=== PATIENT | female | born 1955 | race Caucasian/White ===

== ENCOUNTER 2017-02-26 07:16 | Day surgery (SDC) | payer OTHER ==
[~2017-02-26] VITALS: Ht 154.9 cm; Wt 113.8 kg
[2017-02-26] MEDS ORDERED: CLARITIN5 MG PO (07:30)
[2017-02-26] MEDS ORDERED: NASACORT10.8 ML NAS (07:31)
[2017-02-26] MEDS ORDERED: ESCITALOPRAM OX20 MG PO (07:37)
[2017-02-26] MEDS ORDERED: ADDERALL 10 MG10 MG PO (07:38)
--- NOTE | 2017-02-26 08:45 | NUR ---
02/26/17 0845 Angelica Reeves 0848-PATIENT ARRIVED TO PACU ON 6L OXYMASK O2 SAT 99% PATIENT REACTIVE OPENS EYES. ENCOURAGED TO PASS FLATUS. ABDOMEN ROUND AND SOFT. PATIENT FALLS BACK ASLEEP.
--- NOTE | 2017-02-27 12:08 | OR ---
[facility] [address], [place] [address] Signed DATE OF PROCEDURE: 02/26/17 PREOPERATIVE DIAGNOSES Screening. Mother with a history of colon cancer versus lung cancer. Irritable bowel syndrome. POSTOPERATIVE DIAGNOSES Minimal to moderate sigmoid diverticulosis. A 4-mm polyp distal right colon. A 4-mm polyp left colon. A 4-mm polyp rectosigmoid junction. Internal and external hemorrhoids. PROCEDURE: Colonoscopy with hot biopsy. ESTIMATED BLOOD LOSS: None. INDICATIONS Tanvi is a 61-year-old female, who was asked to see me for a colonoscopy. She spoke of a prior colonoscopy while in [place]. She said her mother had either lung cancer or colon cancer. The autopsy could not determine the origin. She did tell me her mother smoked for many years. Tanvi's previous colonoscopy was negative. In the meantime , she has no lower GI complaints and there is no family history, other than what we mentioned above. Tanvi also told me she remembers being awake during her last colonoscopy. I gave her a pamphlet in the office on colonoscopy and we reviewed the nature of the test along with the risks including, but not limited to gas bloating, crampy abdominal pain, bleeding, perforation requiring surgery, and missed diagnosis. We also discussed the need for IV conscious sedation. We had planned to use our standard Versed and Fentanyl. PROCEDURE NOTE Tanvi was taken into our endoscopy suite and placed in the left lateral decubitus position. She was given a total of 8 mg of Versed and 200 mcg of Fentanyl to cover the whole case. Nevertheless, she was frequently awake, following instructions, and often holding her breath. I think in the future, she would be much better served with Propofol provided by an anesthesia provider. In addition, she has a long redundant colon and sigmoid colon is also long redundant narrowed in it and drags on the scope, as the scope goes through. We did a rectal exam and she does have a moderate external hemorrhoids. The colonoscope was then inserted and advanced under direct visualization with camera. It took a while and rotating her into the supine position and back into the left lateral decubitus position. It was finally made it into the cecum itself. Her prep was good. The scope was then slowly withdrawn. The above-mentioned polyps were Electronically Signed By: MILANA RODRIGUEZ MD 02/27/17 1208 PATIENT NAME: TANVI PRESLEY OPERATIVE REPORT DATE OF : 59 PHYSICIAN: MILANA RODRIGUEZ MD REPORT #: [id number] REPORT IS CONFIDENTIAL AND NOT TO BE RELEASED WITHOUT AUTHORIZATION [facility] [address], [place] [address] Signed removed with the help of hot biopsy forceps. Once in the rectum, the scope have been retroflexed and she had some standard internal hemorrhoid columns. Also she has minimal to moderate sigmoid diverticulosis. After this, the gas had been suctioned out and colonoscope removed. Tanvi tolerated the procedure quite well . RECOMMENDATIONS I will see Tanvi back in my office in 7-14 days to review her results. She needs to consider Propofol for future colonoscopies. MD FLORESITA Padilla/Heladio /[id number] cc: Gerald Nicolas MD Electronically Signed By: MILANA RODRIGUEZ MD 02/27/17 1208 PATIENT NAME: TANVI PRESLEY ANDREW OPERATIVE REPORT DATE OF : 59 PHYSICIAN: MILANA RODRIGUEZ MD REPORT #: [id number] REPORT IS CONFIDENTIAL AND NOT TO BE RELEASED WITHOUT AUTHORIZATION
== END 2017-02-26 09:33 | disposition home or self-care (01) ==
LOC: OPS 07:16 → DS 07:16 → OPS 08:15 → DS 08:15 → OPS 09:33
PROVIDERS: Colon & Rectal Surgery
PROC: 0DBN8ZX Excision of Sigmoid Colon, Via Natural or Artificial Opening Endoscopic, Diagnostic (ICD-10-PCS; 2017-02-26)
PROC: 0DBF8ZX Excision of Right Large Intestine, Via Natural or Artificial Opening Endoscopic, Diagnostic (ICD-10-PCS; 2017-02-26)
PROC: 0DBG8ZX Excision of Left Large Intestine, Via Natural or Artificial Opening Endoscopic, Diagnostic (ICD-10-PCS; principal; 2017-02-26 08:15)
DX: K63.5 Polyp of colon (principal); K57.30 Diverticulosis of large intestine without perforation or abscess without bleeding; K64.4 Residual hemorrhoidal skin tags; K64.8 Other hemorrhoids; E66.9 Obesity, unspecified; F32.9 Major depressive disorder, single episode, unspecified; F90.9 Attention-deficit hyperactivity disorder, unspecified type; Z90.710 Acquired absence of both cervix and uterus; Z90.12 Acquired absence of left breast and nipple; Z98.890 Other specified postprocedural states; Z87.891 Personal history of nicotine dependence; Z88.2 Allergy status to sulfonamides; Z68.42 Body mass index [BMI] 45.0-49.9, adult
CPT/HCPCS: 99152; 99153; J2250; J3010; J7120

== ENCOUNTER 2024-09-25 13:29 | Emergency (ER) | payer MEDICARE, OTHER ==
[~2024-09-25] VITALS: Ht 154.9 cm; Wt 72.1 kg
[~2024-09-25 13:29] MED LIST: ADDERALL 10 MG10 MG PO; CLARITIN5 MG PO; ESCITALOPRAM OX20 MG PO; NASACORT10.8 ML NAS
[2024-09-25 13:53] LABS: BILIRUBIN, URINE NEGATIVE (negative); BLOOD/HGB, URINE LARGE (Negative); KETONE, URINE NEGATIVE (Negative); LEUK ESTERASE, URINE SMALL (negative); NITRITE, URINE POSITIVE (negative)
[2024-09-25 13:58] LABS: CRYSTALS, URINE NONE SEEN (0-1+); EPITHELIAL CELLS, URINE SQUAMOUS 1+ /lpf (0-1+); RED BLOOD CELLS, URINE 21-40 /hpf (0-5); WHITE BLOOD CELLS, URINE >50 /HPF (0-5)
[2024-09-25 13:59] LABS: BACTERIA, URINE 2+ /hpf (negative); CASTS, URINE NONE SEEN \\lpf; COLLECTION TYPE, URINE CLEAN CATCH; REFLEX CULTURE, URINE Yes (No)
[2024-09-25] MEDS ORDERED: FARXIGA5 MG PO (14:27)
[2024-09-25] MEDS ORDERED: LISINOPRIL2.5 MG PO (14:27)
[2024-09-25] MEDS ORDERED: METFORMIN HCL750 MG PO (14:27)
[2024-09-25] MEDS ORDERED: DESVENLAFAXINE100 M3 PO (14:27)
[2024-09-25] MEDS ORDERED: ELIQUIS5 MG PO (14:27)
[2024-09-25] MEDS ORDERED: BUSPIRONE HCL30 MG PO (14:27)
[2024-09-25] MEDS ORDERED: ROSUVASTATIN CA40 MG NG (14:27)
[2024-09-25] MEDS ORDERED: KERENDIA10 MG PO (14:27)
[2024-09-25] MEDS ORDERED: METOPROLOL SUCC25 MG PO (14:28)
[2024-09-25] MEDS ORDERED: TRAZODONE HCL50 MG PO (14:28)
[2024-09-25] MEDS ORDERED: CEPHALEXIN MONOHYDRATE 500 MG CAP PO ONE (15:30)
[2024-09-25] MEDS ORDERED: ONDANSETRON 4 MG TAB ODT SL ONE (15:30)
[2024-09-25] MEDS ORDERED: ONDANSETRON ODT8 MG PO (15:44)
[2024-09-25] MEDS ORDERED: CEPHALEXIN500 M1 PO (15:44)
[2024-09-25 15:50] VITALS: BP 116/59
== END 2024-09-25 15:50 | disposition home or self-care (01) ==
LOC: ED 13:29
PROVIDERS: Emergency Medicine
DX: N39.0 Urinary tract infection, site not specified (principal); E11.22 Type 2 diabetes mellitus with diabetic chronic kidney disease; N18.9 Chronic kidney disease, unspecified; I48.91 Unspecified atrial fibrillation; Z87.891 Personal history of nicotine dependence; Z88.2 Allergy status to sulfonamides; Z79.01 Long term (current) use of anticoagulants; Z79.84 Long term (current) use of oral hypoglycemic drugs; Z79.899 Other long term (current) drug therapy
CPT/HCPCS: 81001; 87088; 99283; A9270

== ENCOUNTER 2024-10-19 15:56 | Emergency (ER) | payer MEDICARE, OTHER ==
[~2024-10-19] VITALS: Ht 154.9 cm; Wt 71.8 kg
[~2024-10-19 15:56] MED LIST changes: +BUSPIRONE HCL30 MG PO; +CEPHALEXIN500 M1 PO; +DESVENLAFAXINE100 M3 PO; +ELIQUIS5 MG PO; +FARXIGA5 MG PO; +KERENDIA10 MG PO; +LISINOPRIL2.5 MG PO; +METFORMIN HCL750 MG PO; +METOPROLOL SUCC25 MG PO; +ONDANSETRON ODT8 MG PO; +ROSUVASTATIN CA40 MG NG; +TRAZODONE HCL50 MG PO
--- OUTSIDE RECORDS SUMMARY | 2024-10-19 15:57 | XMS ---
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 PHONE: [phone] Jean Paul has no Care Guidelines for this patient. E.Joselo. VISIT COUNT (12 MO.) 2 KIRK Gray TOTAL 2 NOTE: Visits indicate total known visits. 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
[2024-10-19] MEDS ORDERED: LIDODERM1 EACH TOP (16:23)
[2024-10-19 16:50] VITALS: BP 125/77
== END 2024-10-19 16:51 | disposition home or self-care (01) ==
LOC: ED 15:56
DX: R07.89 Other chest pain (principal); E11.22 Type 2 diabetes mellitus with diabetic chronic kidney disease; N18.9 Chronic kidney disease, unspecified; I48.91 Unspecified atrial fibrillation; Z79.84 Long term (current) use of oral hypoglycemic drugs; Z79.899 Other long term (current) drug therapy; Z88.2 Allergy status to sulfonamides; Z87.891 Personal history of nicotine dependence
CPT/HCPCS: 71045; 99284-25